=== PATIENT | male | born 1965 | race Asian ===

== ENCOUNTER 2022-06-17 12:57 | Outpatient (CLI) | payer BC ==
[~2022-06-17 12:57] MED LIST: Iopamidol 300 61% 100 ML VIAL FS ONE
== END 2022-06-17 12:58 | disposition home or self-care (01) ==
LOC: CSHCT 12:57
PROVIDERS: ATTEND Family Medicine
DX: R10.33 Periumbilical pain (principal); K56.609 Unspecified intestinal obstruction, unspecified as to partial versus complete obstruction; K80.20 Calculus of gallbladder without cholecystitis without obstruction; K76.9 Liver disease, unspecified; K76.0 Fatty (change of) liver, not elsewhere classified
CPT/HCPCS: 74177

== ENCOUNTER 2022-12-15 07:45 | Outpatient (CLI) | payer BC ==
[2022-12-15] MEDS ORDERED: Iopamidol 300 61% 100 ML VIAL FS ONE (14:33)
== END 2022-12-15 07:46 | disposition home or self-care (01) ==
LOC: CSHCT 07:45
PROVIDERS: ATTEND Family Medicine
DX: R31.9 Hematuria, unspecified (principal); N20.0 Calculus of kidney; N40.0 Benign prostatic hyperplasia without lower urinary tract symptoms; K80.20 Calculus of gallbladder without cholecystitis without obstruction; K76.89 Other specified diseases of liver
CPT/HCPCS: 74178; Q9967